=== PATIENT | female | born 1995 | race Caucasian/White ===

== ENCOUNTER 2022-09-08 23:06 | Emergency (ER) | payer MEDICAID, SELFPAY ==
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
[2022-09-08 23:22] VITALS: BP 117/75; PULSE 87; RESP 20; O2SAT 98; BMI 19.9
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
[2022-09-09] MEDS: Lidocaine HCl 1 % MPF 5 ML VIAL 10 ML SUBCUT (00:39)
[2022-09-09 01:26] VITALS: BP 114/62; PULSE 98; RESP 20; O2SAT 98
[2022-09-09] MEDS: Bacitracin Oint 0.9 GM PACKET 1 APPL TOPICAL (01:26)
== END 2022-09-09 01:29 | disposition home or self-care (01) ==
PROVIDERS: Emergency Provider Emergency Medicine
DX: S60.222A Contusion of left hand, initial encounter (principal); S70.12XA Contusion of left thigh, initial encounter; S61.213A Laceration without foreign body of left middle finger without damage to nail, initial encounter; S61.211A Laceration without foreign body of left index finger without damage to nail, initial encounter; V28.49XA Other motorcycle driver injured in noncollision transport accident in traffic accident, initial encounter; Y92.410 Unspecified street and highway as the place of occurrence of the external cause; Y93.89 Activity, other specified; Y99.9 Unspecified external cause status
CPT/HCPCS: 12002; 73120; 73552; 99284

== ENCOUNTER 2022-09-20 10:11 | Emergency (ER) | payer MEDICAID, SELFPAY ==
[2022-09-20 10:26] VITALS: BP 119/48; PULSE 89; RESP 12; TEMP 36.7; O2SAT 100; BMI 19.6
--- NOTE | 2022-09-20 10:49 | ED.WOUNDLAC ---
HPI - Wound/Laceration General Chief Complaint: Wound/Laceration Stated Complaint: suture removal Time Seen by Provider: 09/20/22 10:45 History of Present Illness HPI narrative: patient presents for suture removal from left hand Related Data Allergies Allergy/AdvReac Type Severity Reaction Status Date / Time No Known Allergies Allergy Verified 09/08/22 23:26 [facility] Past Medical History Source: nursing notes reviewed Social History Social History Advance Directives: No Advance Directives Information Provided: Yes Physical Exam Vital Signs: Vital Signs: Last Vital Signs Temp 98.0 F 09/20/22 10:26 Pulse 89 09/20/22 10:26 Resp 12 09/20/22 10:26 BP 119/48 L 09/20/22 10:26 Pulse Ox 100 09/20/22 10:26 O2 Del Method Room Air 09/20/22 10:26 BMI result Body Mass Index 19.6 general appearance comfortable no distress Sutures from left 3rd and 4th fingers were in place with no surrounding erythema no discharge no swelling no signs of infection neurovascular intact distal tendon function intact distal Course Course Course Narrative: sutures easily removed with no wound dehiscence Discharge Plan Discharge Clinical Impression: Visit for suture removal Patient Disposition: Home, Self-Care Additional Instructions: sutures were removed, no sign of infection Return any concerns
== END 2022-09-20 11:15 | disposition home or self-care (01) ==
PROVIDERS: Emergency Provider Emergency Medicine
DX: Z48.02 Encounter for removal of sutures (principal)
CPT/HCPCS: 99281; 99283

== ENCOUNTER 2024-10-05 11:29 | Emergency (ER) | payer MEDICAID, SELFPAY ==
[2024-10-05 11:35] VITALS: BP 96/58; PULSE 97; RESP 16; TEMP 36.3; O2SAT 96; BMI 19.0
--- NOTE | 2024-10-05 11:35 | ED.GENADULT ---
HPI - General Adult General Chief complaint: Dental/Oral Stated complaint: facial swelling Time Seen by Provider: 10/05/24 11:39 Source: patient and RN notes reviewed Mode of arrival: ambulatory Limitations: no limitations History of Present Illness ED Provider: Michelle Guzman PA-C HPI narrative: This is a 29-year-old female who presents emergency department with complaints of left-sided facial pain since yesterday. Patient states that she has known dental caries and states that she has issues with her teeth. She does not have a dentist at this time. No fevers or chills. She awoke with left-sided facial pain and swelling. Able to eat and drink without difficulty. No other complaints or concerns at this time. MD complaint: Dental pain Exacerbating factors: none Associated symptoms: denies other symptoms Treatments prior to arrival: none Related Data Previous Rx's ?Medication ?Instructions ?Recorded acetaminophen 500 mg tablet 500 - 1,000 mg (1 - 2 x 500 mg) PO 10/05/24 (Tylenol Extra Strength) Q6H PRN fever or pain #30 tabs amoxicillin 875 mg-potassium 1 tab PO BID 7 days #14 tabs 10/05/24 clavulanate 125 mg tablet ibuprofen 600 mg tablet 600 mg PO Q6H PRN fever or pain 10/05/24 #30 tabs Allergies Allergy/AdvReac Type Severity Reaction Status Date / Time calamine Allergy Unknown Verified 10/05/24 11:37 mushroom Allergy Unknown Verified 10/05/24 11:37 shellfish derived (shellfish) Allergy Unknown Verified 10/05/24 11:37 Review of Systems Review of Systems: Yes all other systems are reviewed and are negative Constitutional: Constitutional: Reports as per [facility] Social History Social History Advance Directives: No Advance Directives Information Provided: Yes Physical Exam ED Vital Signs: Vital Signs - 24 hr 10/05/24 11:35 10/05/24 11:54 Temperature 97.4 F 97.4 F Pulse Rate 97 97 Respiratory Rate 16 16 Blood Pressure 96/58 L 96/58 L Pulse Oximetry 96 96 Oxygen Delivery Method Room Air Room Air BMI result Body Mass Index 19.0 Const General: cooperative, comfortable and no acute distress Orientation/consciousness: patient oriented x3 Limitations: no limitations HENMT Head: Yes normal to inspection, Yes normocephalic and Yes atraumatic Ears: hearing grossly normal bilaterally General nose exam: Normal external nose present Face and sinus: Yes normal facial exam Mouth: Normal oral and palatal mucosa present, oropharynx normal and moist mucous membranes Teeth and gingiva: caries and other (Tooth number 10 and 11 and poor repair, no obvious dental abscess) Throat: Yes posterior oropharynx normal Eyes General: appearance normal, both eyes and all related structures Eyelids: Yes eyelids normal Conjunctivae: conjunctivae normal Sclerae: sclerae normal Pupils: Equal, round and reactive pupils present EOM: EOMs intact bilaterally Neck Neck: Yes normal visual inspection, Yes full ROM and Yes no lymphadenopathy Lymphatic: no lymphadenopathy noted Chest Chest palpation & inspection: normal inspection of the chest Resp Effort & Inspection: normal respiratory effort and able to speak in complete sentences Auscultation: clear to auscultation bilaterally, no crackles, no rales, no rhonchi and no wheezes Cardio Rate: regular rate Rhythm: regular rhythm Heart sounds: S1 normal heart sound present and S2 normal heart sound present GI Inspection: Yes normal to inspection Skin General skin exam: no rashes or lesions noted Trauma: no lacerations or abrasions Wounds: no wounds Neuro General: patient oriented x3 and moves all extremities Cranial nerves: Yes Equal, round and reactive pupils present Extrem General: Yes normal to inspection Right upper extremity: normal to inspection Left upper extremity: normal to inspection Right lower extremity: normal to inspection Left lower extremity: normal to inspection Medical Decision Making Medical Decision Making MDM Narrative: This is a 29-year-old female who presents emergency department with complaints of left-sided facial swelling and pain. Known dental infection on the right. No significant swelling to the left side of the face, no trismus, drooling, or dysphonia. She is speaking in full sentences. She had subjective fevers and chills yesterday. On arrival, vital signs within normal limits. She is speaking full sentences under no acute distress. Dentition in poor repair, requiring dental attention, will treat with course of antibiotics. Given strict return precautions. Patient stable for discharge. Differential Diagnosis Differential Diagnoses: The differential diagnosis associated with the presentation includes Dental abscess, dental decay, dental fracture, otalgia Discharge Plan Discharge Clinical Impression: Toothache, Dental caries Patient Disposition: Home, Self-Care Instructions: Toothache (ED) Additional Instructions: You were seen in the emergency department due to facial pain and swelling. Please take prescribed antibiotic as directed, finish the entire course even if your symptoms improve. Alternate between ibuprofen and or Tylenol as needed for pain and symptoms. Follow-up with a dentist. Call today to make an appointment. If any new or worsening symptoms occur including but not limited to worsening pain, swelling, inability to swallow, high fevers not responding to Tylenol or Motrin, please return for re-evaluation. Prescriptions: New amoxicillin-pot clavulanate 875-125 mg tablet 1 tab PO BID 7 Days Qty: 14 0RF acetaminophen [Tylenol Extra Strength] 500 mg tablet 500 - 1,000 mg PO Q6H PRN (Reason: fever or pain) Qty: 30 0RF ibuprofen 600 mg tablet 600 mg PO Q6H PRN (Reason: fever or pain) Qty: 30 0RF Stand Alone Forms: Work/School Release Interventions: ED Discharge Assessment Last Done: 10/05/24 11:54 Discharge Date/Time: 10/05/24 11:54 Print Language: Irish
[2024-10-05 11:54] VITALS: BP 96/58; PULSE 97; RESP 16; TEMP 36.3; O2SAT 96
--- OUTSIDE RECORDS SUMMARY | 2024-10-05 12:19 | XMS_ITS | Clinical Summary ---
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 Name Role Phone Unavailable Primary Care Provider Unavailabl e Social History Tobacco Use Types Packs/Day Years Used Date Smoking Tobacco: Never Smokeless Tobacco: Never Alcohol Use Standard Drinks/Week Comments Not Currently 0 (1 standard drink = 0.6 oz pur e alcohol) Comments Unknown Sex and Gender Information Value Date Recorded Sex Assigned at Not on file Legal Sex Female 12:59 AM EST Gender Identity Not on file Sexual Orientation Not on file Obstetrics History Plan of Treatment Health Maintenance Due Date Last Done Comments DTaP,Tdap,and Td Vaccines (1 - Tdap) 2012 Hepatitis B Vaccines (1 of 3 - 19+ 3-dose series) 2012 Cervical Cancer Screening: P ap Smear 2014 Depression Screening 03/01/2022 HIV Screening 03/01/2022 Hepatitis C Screening 03/01/2022 Social Influencers of Health Screening 03/01/2022 COVID-19 Vaccine ( - 2023-2 5 season) 2023 Influenza Vaccine (#1) 2024 HIB Vaccines Aged Out No longer eligi ble based on patient's age to complete this topic HPV Vaccines Aged Out No longer eligi ble based on patient's age to complete this topic Hepatitis A Vaccines Aged Out No long er eligible based on patient's age to complete this topic IPV Vaccines Aged Out No longer eligi ble based on patient's age to complete this topic MMR Vaccines Aged Out No longer eligi ble based on patient's age to complete this topic Meningococcal ACWY Vaccine Aged Out N o longer eligible based on patient's age to complete this topic Meningococcal B Vaccine Aged Out No l onger eligible based on patient's age to complete this topic Pneumococcal Vaccine: Pediat rics (0 to 5 Years) and At-Risk Patients (6 to 49 Years) Aged Out No longer eligible b ased on patient's age to complete this topic RSV Immunization Patients Un dahiana 20 months Aged Out No longer eligible b ased on patient's age to complete this topic Varicella Vaccines Aged Out No longer eligible based on patient's age to complete this topic
== END 2024-10-05 11:54 | disposition home or self-care (01) ==
PROVIDERS: Emergency Provider Emergency Medicine
DX: K02.9 Dental caries, unspecified (principal); R60.9 Edema, unspecified
CPT/HCPCS: 99282; 99283